=== PATIENT | female | born 1985 | race Caucasian/White ===

== ENCOUNTER 2017-01-04 16:08 | Emergency (ER) | payer OTHER | END 2017-01-04 19:04 | disposition home or self-care (01) | LOC: ER 16:08 | DX: M25.561 Pain in right knee (principal); M25.562 Pain in left knee; R51 Headache; M54.2 Cervicalgia; G89.29 Other chronic pain; M54.9 Dorsalgia, unspecified; F17.210 Nicotine dependence, cigarettes, uncomplicated; V43.62XA Car passenger injured in collision with other type car in traffic accident, initial encounter; Y92.413 State road as the place of occurrence of the external cause; Z79.891 Long term (current) use of opiate analgesic; Z79.899 Other long term (current) drug therapy; Z88.0 Allergy status to penicillin | CPT/HCPCS: 70450; 71250; 72125; 72128; 73564; 99284; 99284-25 ==